=== PATIENT | female | born 1965 | race Caucasian/White ===

== ENCOUNTER → 2020-08-17 13:43 | Outpatient (CLI) | payer BC, SELFPAY ==
--- NOTE | 2020-08-17 | DI.RAD.S_ITS ---
PROCEDURE: XR KNEE RT 3V INDICATIONS: Unilateral primary osteoarthritis, right knee TECHNIQUE: 3 views of the knee were acquired. COMPARISON: None. FINDINGS: Bones: No fractures or dislocations. No suspicious bony lesions. Severe narrowing of the lateral femoral tibial joint and tricompartmental periarticular osteophyte formation. Soft tissues: No joint effusion. No suspicious soft tissue calcifications. IMPRESSION: Tricompartmental knee joint degeneration, severe involving the lateral femoral tibial joint. Dictated by: Westley ROBERTS Interpreted: Alexander Grimes MD on 08/17/2020 at 15:59 Transcribed by: ALO on 08/17/2020 at 15:59 Approved by: Alexander Grimes M.D. on 08/17/2020 at 16:56
--- NOTE | 2020-08-17 | DI.RAD.S_ITS ---
PROCEDURE: XR LUMBAR SPINE 2-3V INDICATIONS: Unilateral primary osteoarthritis, right knee TECHNIQUE: 3 views of the lumbar spine were acquired. COMPARISON: None. FINDINGS: Bones: 5 [id number] vertebrae are present. Mild levoscoliosis. Endplate osteophytes indicating mild early multilevel mid and lower cervical spine disc degeneration. Mild L5-S1 facet joint arthropathy.. No vertebral body compression fractures. No suspicious bony lesions. Soft tissues: Overlying bowel gas pattern is normal. No suspicious soft tissue calcifications. IMPRESSION: Mild multilevel spondylosis. Dictated by: Westley Mishra Joe Interpreted: Alexander Grimes MD on 08/17/2020 at 15:58 Transcribed by: ALO on 08/17/2020 at 15:59 Approved by: Alexander Grimes M.D. on 08/17/2020 at 16:56
== END ==
PROVIDERS: PCP Family Medicine; Referring Provider Family Medicine; Visit Provider Family Medicine
DX: M51.26 Other intervertebral disc displacement, lumbar region (principal); M17.11 Unilateral primary osteoarthritis, right knee
CPT/HCPCS: 72100; 73562

== ENCOUNTER → 2022-01-11 13:47 | Outpatient (CLI) | payer BC, SELFPAY ==
--- NOTE | 2022-01-11 13:49 | DI.RAD.S_ITS ---
PROCEDURE: XR LUMBAR SPINE 2-3V INDICATIONS: SPINE PAIN TECHNIQUE: 3 views of the lumbar spine were acquired. COMPARISON: [facility], CR, XR LUMBAR SPINE 2-3V, 08/17/2020, 14:10. FINDINGS: Bones: 5 [id number] vertebrae are present. There is mild levoscoliosis of lumbar spine centered at L2-3 level. No vertebral body compression fractures. Mild degenerative endplate changes are seen at L2-3, L3-4 and L4-5 levels. No suspicious bony lesions. Soft tissues: Overlying bowel gas pattern is normal. No suspicious soft tissue calcifications. IMPRESSION: Mild scoliosis and mild degenerative disc disease in lumbar spine as above. No fracture or dislocation. No gross paraspinous soft tissue abnormalities. Dictated by: Tomás Conley M.D. on 01/11/2022 at 15:45 Approved by: Tomás Conley M.D. on 01/11/2022 at 15:47
== END ==
PROVIDERS: PCP Family Medicine; Referring Provider Family Medicine; Visit Provider Family Medicine
DX: M51.16 Intervertebral disc disorders with radiculopathy, lumbar region (principal); M41.9 Scoliosis, unspecified
CPT/HCPCS: 72100

== ENCOUNTER → 2022-04-23 16:20 | Outpatient (CLI) | payer BC, SELFPAY ==
--- NOTE | 2022-04-23 | DI.MG.S_ITS ---
BILATERAL DIGITAL SCREENING MAMMOGRAM 3D/2D WITH CAD: 04/23/2022 CLINICAL: Routine screening. Comparison is made to exam dated: 03/08/2016 mammogram - [facility]. There are scattered areas of fibroglandular density in both breasts (category b / 25%-50% glandular tissue). Current study was also evaluated with a Computer Aided Detection (CAD) system. No significant masses, calcifications, or other findings are seen in either breast. There has been no significant interval change. IMPRESSION: NEGATIVE There is no mammographic evidence of malignancy. A 1 year screening mammogram is recommended. Based on the Tyrer Cuzick model (a risk assessment model) the patient's lifetime risk is 7.4% and her 10 year risk is 2.5%. According to the ACR, ACS, and NCCN guidelines, an annual breast MRI exam along with mammogram is recommended if the patient's lifetime risk is 20% or greater. This exam was interpreted at Station ID: [id number]. NOTE: For mammograms, a report in lay terms will be sent to the patient. Approximately 15% of breast malignancies will not be visualized mammographically. In the management of a palpable breast mass, a negative mammogram must not discourage biopsy of a clinically suspicious lesion. Electronically Signed By: Volodymyr cox/ester:04/24/2022 12:52:26 letter sent: Normal Exam ACR BI-RADS Category 1: Negative [id number]
== END ==
PROVIDERS: PCP Family Medicine; Referring Provider Family Medicine; Visit Provider Family Medicine
DX: Z12.31 Encounter for screening mammogram for malignant neoplasm of breast (principal)
CPT/HCPCS: 77063; 77067

== ENCOUNTER → 2022-06-04 12:36 | Outpatient (CLI) | payer BC, SELFPAY ==
[2022-06-04 13:58] LABS: Add Manual Diff / Slide Review NO; Basophils Absolute Auto 100 /uL (0-100); Basophils Percent Auto 1.5 % (0-2); Eosinophils Absolute Auto 200 /uL (0-450); Eosinophils Percent Auto 2.1 % (2-4); Hematocrit 42.3 % (36-46); Hemoglobin 14.3 g/dL (12.0-16.0); Lymphocytes Absolute Auto 2200 /uL (1100-4500); Lymphocytes Percent Auto 28.6 % (25-40); Mean Corpuscular HGB Conc 33.7 % (30-36); Monocytes Absolute Auto 400 /uL (0-900); Monocytes Percent Auto 5.4 % (3-14); Neutrophils Absolute Auto 4900 /uL (1500-7000); Neutrophils Percent Auto 62.4 % (50-75); Platelet Count 270 X10^3/uL (150-400); Red Blood Cell Count 4.92 X10^6/uL (4.0-5.2); Red Cell Distribution Width 13.3 % (11.6-14.8); White Blood Cell Count 7.8 X10^3/uL (4.5-11.0)
[2022-06-04 14:08] LABS: Appearance Urine UA CLEAR; Bilirubin Urine UA NEGATIVE (NEGATIVE); Color Urine UA YELLOW; Glucose Urine UA NEGATIVE (Negative); Ketones Urine UA NEGATIVE (NEGATIVE); Leukocyte Esterase Urine UA 1+ (NEGATIVE); Nitrite Urine UA NEGATIVE (Negative); Occult Blood Urine UA NEGATIVE (Negative); Protein Urine UA NEGATIVE (Negative); Specific Gravity Urine UA >=1.030 (1.000-1.035); Urobilinogen Urine UA 0.2 E.U./dL (0.2)
[2022-06-04 14:12] LABS: BUN Creatinine Ratio 22.2 (6-22); Blood Urea Nitrogen 12 mg/dL (7-17); Calcium 9.1 mg/dL (8.4-10.2); Carbon Dioxide 27 mmol/L (22-32); Chloride 104 mmol/L (98-107); Estimated Glomerular Filt Rate > 60 mL/min (>60); Glucose 84 mg/dL (70-100); HEMOLYSIS < 15 (0-50); Potassium 4.3 mmol/L (3.4-5.1); Sodium 140 mmol/L (137-145); pH Urine UA 5.5 (4.5-8.0)
[2022-06-04 14:14] LABS: Bacteria Urine Occasional (0-1); Culture Indicated Urine Specimen Cultured; RBC Urine 0-1/HPF (0-5/HPF); Renal Epithelial Cells Urine 0-1/HPF (0-1/HPF); Squamous Epithelial Cell Urine 1-5 /HPF (0-5/HPF); WBC Urine 5-10/HPF (0-5/HPF)
[2022-06-04 14:15] LABS: Hemoglobin A1C% w Est Avg Glu 5.1 % (4.0-6.0)
== END ==
PROVIDERS: PCP Family Medicine; Referring Provider Orthopaedic Surgery; Visit Provider Orthopaedic Surgery
DX: Z01.818 Encounter for other preprocedural examination (principal); Z01.812 Encounter for preprocedural laboratory examination; R73.9 Hyperglycemia, unspecified; N39.0 Urinary tract infection, site not specified
CPT/HCPCS: 36415; 80048; 81001; 83036; 85025; 87086; 93005; 93010

== ENCOUNTER → 2022-09-22 11:43 | Outpatient (CLI) | payer BC, SELFPAY ==
[2022-09-22 12:19] LABS: Add Manual Diff / Slide Review NO; Basophils Absolute Auto 100 /uL (0-100); Basophils Percent Auto 1.3 % (0-2); Eosinophils Absolute Auto 100 /uL (0-450); Eosinophils Percent Auto 2.1 % (2-4); Hematocrit 41.4 % (36-46); Hemoglobin 14.1 g/dL (12.0-16.0); Lymphocytes Absolute Auto 1600 /uL (1100-4500); Mean Corpuscular HGB Conc 34.2 % (30-36); Mean Corpuscular Hemoglobin 29.1 PG (26-34); Mean Corpuscular Volume 85.1 fL (80-100); Monocytes Absolute Auto 400 /uL (0-900); Monocytes Percent Auto 6.4 % (3-14); Neutrophils Absolute Auto 3800 /uL (1500-7000); Neutrophils Percent Auto 63.2 % (50-75); Platelet Count 224 X10^3/uL (150-400); Red Blood Cell Count 4.86 X10^6/uL (4.0-5.2)
[2022-09-22 12:37] LABS: Alanine Aminotransferase 19 IU/L (<35); Albumin 4.4 g/dL (3.5-5.0); Albumin Globulin Ratio 1.6 (1.0-2.8); Alkaline Phosphatase 91 U/L (38-126); Aspartate Aminotransferase 25 IU/L (14-36); BUN Creatinine Ratio 28.6 (6-22); Bilirubin Total 0.7 mg/dL (0.2-1.3); Bilirubin Unconjugated 0.5 mg/dL (0.0-1.1); Blood Urea Nitrogen 18 mg/dL (7-17); Estimated Glomerular Filt Rate > 60 mL/min (>60); Globulin 2.7 g/dL (1.7-4.1); HEMOLYSIS < 15 (0-50); Total Protein 7.1 g/dL (6.3-8.2)
== END ==
PROVIDERS: PCP Family Medicine; Referring Provider Orthopaedic Surgery; Visit Provider Orthopaedic Surgery
DX: Z01.812 Encounter for preprocedural laboratory examination (principal); B35.1 Tinea unguium
CPT/HCPCS: 36415; 80076; 82565; 84520; 85025; 93005; 93010

== ENCOUNTER → 2022-11-15 15:57 | Outpatient (CLI) | payer BC, SELFPAY ==
--- NOTE | 2022-11-15 15:59 | DI.US.S_ITS ---
PROCEDURE: US PERIPH VENOUS LOW EXTREM LT INDICATIONS: left leg pain and swelling TECHNIQUE: Real-time imaging, as well as color and pulse Doppler interrogation, were performed of the lower extremity deep veins from the inguinal ligament to the popliteal fossa, with documentation of the visualized calf veins. COMPARISON: None. FINDINGS: The common femoral, femoral, popliteal, and the visualized calf veins are normally compressible, and free of intraluminal thrombus. Color and pulse Doppler demonstrate normal phasic intraluminal flow. There is normal augmentation response to distal compression maneuver. IMPRESSION: No findings of lower extremity deep venous thrombosis. Dictated by: Ryley Cortez M.D. on 11/15/2022 at 17:49 Approved by: Ryley Cortez M.D. on 11/15/2022 at 17:49
== END ==
LOC: US 15:58
PROVIDERS: PCP Family Medicine; Referring Provider Family Medicine; Visit Provider Family Medicine
DX: I82.422 Acute embolism and thrombosis of left iliac vein (principal)
CPT/HCPCS: 93971

== ENCOUNTER 2022-11-23 16:20 | Emergency (ER) | payer BC, SELFPAY ==
[2022-11-23 16:47] VITALS: BP 134/79; PULSE 89; RESP 16; TEMP 36.1; O2SAT 97; BMI 37.3
--- NOTE | 2022-11-23 17:01 | DI.RAD.S_ITS ---
PROCEDURE: XR CHEST 1V INDICATIONS: chest pain TECHNIQUE: One view of the chest was acquired. COMPARISON: None. FINDINGS: Surgical changes and devices: None. Lungs and pleura: Lungs are clear. No pleural effusions or pneumothorax. Mediastinum: Mediastinal contours appear normal. Heart size is normal. Bones and chest wall: No suspicious bony lesions. Overlying soft tissues appear unremarkable. IMPRESSION: Portable chest within normal limits for age. Dictated by: Huan Palmer M.D. on 11/23/2022 at 18:28 Approved by: Huan Palmer M.D. on 11/23/2022 at 18:29
[2022-11-23 17:22] LABS: COVID19 -Nasal RAPID Negative (Negative)
[2022-11-23 18:15] LABS: Add Manual Diff / Slide Review NO; Basophils Absolute Auto 100 /uL (0-100); Basophils Percent Auto 1.2 % (0-2); Eosinophils Absolute Auto 400 /uL (0-450); Eosinophils Percent Auto 7.3 % (2-4); Hematocrit 34.5 % (36-46); Hemoglobin 11.7 g/dL (12.0-16.0); Lymphocytes Absolute Auto 1200 /uL (1100-4500); Lymphocytes Percent Auto 20.7 % (25-40); Mean Corpuscular HGB Conc 33.9 % (30-36); Mean Corpuscular Hemoglobin 28.7 PG (26-34); Mean Corpuscular Volume 84.7 fL (80-100); Monocytes Absolute Auto 500 /uL (0-900); Monocytes Percent Auto 7.8 % (3-14); Neutrophils Absolute Auto 3600 /uL (1500-7000); Platelet Count 233 X10^3/uL (150-400); Red Blood Cell Count 4.08 X10^6/uL (4.0-5.2); Red Cell Distribution Width 13.8 % (11.6-14.8); White Blood Cell Count 5.8 X10^3/uL (4.5-11.0)
[2022-11-23 18:18] LABS: INR 1.1 (0.9-1.3); Prothrombin Time 12.4 SECONDS (10.1-12.7)
[2022-11-23 18:20] LABS: PTT Partial Thromboplastin Tim 30 SECONDS (26-36)
[2022-11-23 18:25] LABS: Alanine Aminotransferase 20 IU/L (<35); Albumin 4.4 g/dL (3.5-5.0); Albumin Globulin Ratio 1.7 (1.0-2.8); Alkaline Phosphatase 70 U/L (38-126); Aspartate Aminotransferase 28 IU/L (14-36); BUN Creatinine Ratio 21.5 (6-22); Bilirubin Total 0.5 mg/dL (0.2-1.3); Blood Urea Nitrogen 14 mg/dL (7-17); Calcium 9.1 mg/dL (8.4-10.2); Carbon Dioxide 28 mmol/L (22-32); Chloride 103 mmol/L (98-107); Creatine Kinase 110 U/L (30-135); Estimated Glomerular Filt Rate > 60 mL/min (>60); Globulin 2.6 g/dL (1.7-4.1); Glucose 99 mg/dL (70-100); HEMOLYSIS < 15 (0-50); Lipase 36 U/L (23-300); Magnesium 1.8 mg/dL (1.6-2.3); Potassium 3.9 mmol/L (3.4-5.1); Sodium 139 mmol/L (137-145)
[2022-11-23 18:36] LABS: NT-proBNP (BNP-Adult 18+) 154 pg/mL (<125); Troponin I < 0.012 ng/mL (0.01-0.034)
--- NOTE | 2022-11-23 20:32 | ED_ITS ---
HPI - Extremity Problem General Chief complaint: Extremity Problem,Nontraumatic Stated complaint: Feet swelling Time Seen by Provider: 11/23/22 20:18 Source: patient Mode of arrival: Ambulatory History of Present Illness HPI Narrative: Patient is a 57-year-old female. She was approximately 1 month status post left total knee arthroplasty. She is had swelling in her left lower extremity since that time but she feels like it is potentially been worsening. She has had a ultrasound ordered as an outpatient which did not show any signs of a blood clot. She has been doing physical therapy. She has a follow-up with orthopedic surgeon next week. She denies any fevers. No history of heart failure. Related Data Allergies Allergy/AdvReac Type Severity Reaction Status Date / Time Penicillins Allergy Severe Hives Verified 11/23/22 16:46 Review of Systems Constitutional Constitutional: Reports system reviewed and no additional complaints, except as documented Musculoskeletal Musculoskeletal: Reports system reviewed and no additional complaints, except as documented Integumentary/Breasts Skin/Breast: Reports system reviewed and no additional complaints, except as documented Neurologic Neurologic: Reports system reviewed and no additional complaints, except as documented Hematologic/Lymphatic On Anticoagulants: No Patient History Social History Smoking Status: Never smoker Smoking Status: Never smoker Substance Use Type: does not use Exam Initial Vital Signs Initial Vital Signs: Vital Signs Temperature 97.0 F L 11/23/22 16:47 Pulse Rate 89 11/23/22 16:47 Respiratory Rate 16 11/23/22 16:47 Blood Pressure 134/79 11/23/22 16:47 Pulse Oximetry 97 11/23/22 16:47 Oxygen Delivery Method Room Air 11/23/22 16:47 Const General: No ill appearing Resp Auscultation: clear to auscultation bilaterally Cardio Rate: regular rate Rhythm: regular rhythm Skin Other: Surgical incision left anterior knee appears well. There was no signs of infection or dehiscence. She does have redness to her left lower extremity distal to the surgical incision. It is not warm to the touch. Neuro General: patient alert, patient awake and moves all extremities Extrem Other: Swelling bilateral lower extremities with left being worse than right. Course Orders Ordered: ED Orders 11/23/22 17:01 XR chest 1V Stat 11/23/22 17:02 COVID19 -Nasal RAPID Stat 11/23/22 17:50 Complete Blood Count AUTO DIFF Stat Comprehensive Metabolic Panel Stat Lipase Stat Magnesium Stat NT-proBNP (BNP-Adult 18+) Stat PTT Partial Thromboplastin Carlos Stat Prothrombin Time INR Stat Troponin & CK Cardiac Panel Stat 11/23/22 18:02 EKG-12 Lead Stat Vital Signs Vital signs: Vital Signs - 8 hr 11/23/22 20:51 11/23/22 21:00 11/23/22 21:00 Pulse Rate 90 90 Respiratory Rate 26 H Blood Pressure 162/86 H Pulse Oximetry 98 98 Oxygen Delivery Method Room Air 11/23/22 21:30 11/23/22 21:30 11/23/22 21:37 Pulse Rate 83 83 Respiratory Rate 16 Blood Pressure 157/75 H 157/75 H Pulse Oximetry 98 98 Oxygen Delivery Method Room Air MDM - Extremity (Nontraumatic) Lab Data 11/23/22 17:50 11/23/22 17:50 Labs: Lab Results 11/23/22 11/23/22 11/23/22 Range/Units 17:02 17:50 17:50 WBC 5.8 (4.5-11.0) X10^3/uL RBC 4.08 (4.0-5.2) X10^6/uL Hgb 11.7 L (12.0-16.0) g/dL Hct 34.5 L (36-46) % MCV 84.7 (80-100) fL MCH 28.7 (26-34) PG MCHC 33.9 (30-36) % RDW 13.8 (11.6-14.8) % Plt Count 233 (150-400) X10^3/uL Neut % (Auto) 63.0 (50-75) % Lymph % (Auto) 20.7 L (25-40) % [place] % (Auto) 7.8 (3-14) % Eos % (Auto) 7.3 H (2-4) % Baso % (Auto) 1.2 (0-2) % Neut # (Auto) 3600 (5386-9626) /uL Lymph # (Auto) 1200 (9008-9069) /uL [place] # (Auto) 500 (0-900) /uL Eos # (Auto) 400 (0-450) /uL Baso # (Auto) 100 (0-100) /uL PT 12.4 (10.1-12.7) SECONDS INR 1.1 (0.9-1.3) APTT 30 (26-36) SECONDS Sodium (137-145) mmol/L Potassium (3.4-5.1) mmol/L Chloride (98-107) mmol/L Carbon Dioxide (22-32) mmol/L BUN (7-17) mg/dL Creatinine (0.52-1.04) mg/dL Estimated GFR (>60) mL/min BUN/Creatinine Ratio (6-22) Glucose (70-100) mg/dL Calcium (8.4-10.2) mg/dL Magnesium (1.6-2.3) mg/dL Total Bilirubin (0.2-1.3) mg/dL AST (14-36) IU/L ALT (<35) IU/L Alkaline Phosphatase (38-126) U/L Total Creatine Kinase (30-135) U/L Troponin I (0.01-0.034) ng/mL NT-Pro-B Natriuret Pep (<125) pg/mL Total Protein (6.3-8.2) g/dL Albumin (3.5-5.0) g/dL Globulin (1.7-4.1) g/dL Albumin/Globulin Ratio (1.0-2.8) Lipase (23-300) U/L SARS-CoV-2 (PCR) Negative (Negative) 11/23/22 Range/Units 17:50 WBC (4.5-11.0) X10^3/uL RBC (4.0-5.2) X10^6/uL Hgb (12.0-16.0) g/dL Hct (36-46) % MCV (80-100) fL MCH (26-34) PG MCHC (30-36) % RDW (11.6-14.8) % Plt Count (150-400) X10^3/uL Neut % (Auto) (50-75) % Lymph % (Auto) (25-40) % [place] % (Auto) (3-14) % Eos % (Auto) (2-4) % Baso % (Auto) (0-2) % Neut # (Auto) (3110-7092) /uL Lymph # (Auto) (8865-3596) /uL [place] # (Auto) (0-900) /uL Eos # (Auto) (0-450) /uL Baso # (Auto) (0-100) /uL PT (10.1-12.7) SECONDS INR (0.9-1.3) APTT (26-36) SECONDS Sodium 139 (137-145) mmol/L Potassium 3.9 (3.4-5.1) mmol/L Chloride 103 (98-107) mmol/L Carbon Dioxide 28 (22-32) mmol/L BUN 14 (7-17) mg/dL Creatinine 0.65 (0.52-1.04) mg/dL Estimated GFR > 60 (>60) mL/min BUN/Creatinine Ratio 21.5 (6-22) Glucose 99 (70-100) mg/dL Calcium 9.1 (8.4-10.2) mg/dL Magnesium 1.8 (1.6-2.3) mg/dL Total Bilirubin 0.5 (0.2-1.3) mg/dL AST 28 (14-36) IU/L ALT 20 (<35) IU/L Alkaline Phosphatase 70 (38-126) U/L Total Creatine Kinase 110 (30-135) U/L Troponin I < 0.012 (0.01-0.034) ng/mL NT-Pro-B Natriuret Pep 154 H (<125) pg/mL Total Protein 7.0 (6.3-8.2) g/dL Albumin 4.4 (3.5-5.0) g/dL Globulin 2.6 (1.7-4.1) g/dL Albumin/Globulin Ratio 1.7 (1.0-2.8) Lipase 36 (23-300) U/L SARS-CoV-2 (PCR) (Negative) Imaging Data Chest x-ray: Radiologist's Impression: PROCEDURE:? XR CHEST 1V ? INDICATIONS:? chest pain ? TECHNIQUE:? One view of the chest was acquired.? ? COMPARISON:? None. ? FINDINGS:? ? Surgical changes and devices:? None.? ? Lungs and pleura:? Lungs are clear.? No pleural effusions or pneumothorax.? ? Mediastinum:? Mediastinal contours appear normal.? Heart size is normal.? ? Bones and chest wall:? No suspicious bony lesions.? Overlying soft tissues appear unremarkable.? ? ? IMPRESSION:? Portable chest within normal limits for age. ECG Data Interpretation: Sinus rhythm Ventricular rate 82 Normal axis Normal QRS Normal QTC No ST T wave changes MDM Narrative Medical decision making narrative: Patient has had a DVT ultrasound which has been negative and I have low suspicion for that today. The surgical incision appears well. Low suspicion for heart failure. Her kidney function is unremarkable. Did consider cellulitis however she is afebrile, not tachycardic and has no leukocytosis. She has redness or lower extremity but it is not warm to the touch. There was no signs of any abscess. I do suspect that the swelling is related to the surgery that she is had. She has a follow-up with her orthopedic surgeon next week. She does have compression stockings at home but she states they are way too tight for her. We discussed potentially using an Gray bandage to try to help with it so that she can adjust the compression of this. We will send the patient home with instructions to continue to follow the postoperative instructions given to her by the orthopedic surgeon. She was given return precautions. She expressed understanding and agreement. Discharge Plan Departure Patient Disposition: Home Clinical Impression: Lower extremity edema Instructions: Edema Activity Restrictions/Additional Instructions: Recommend that you continue to follow all of the postoperative instructions given to by the orthopedic surgeon. Keep all of your scheduled medical appointments. Return to the emergency department for new or worsening symptoms. Referrals: Michael Neely MD [Primary Care Provider] - Stand Alone Forms: Patient Portal/API
[2022-11-23 20:51] VITALS: PULSE 90; RESP 26; O2SAT 98
[2022-11-23 21:00] VITALS: BP 162/86; PULSE 90; O2SAT 98
[2022-11-23 21:30] VITALS: BP 157/75; PULSE 83; O2SAT 98
[2022-11-23 21:37] VITALS: BP 157/75; PULSE 83; RESP 16; O2SAT 98
== END 2022-11-23 21:37 | disposition home or self-care (01) ==
PROVIDERS: Emergency Medicine; Emergency Provider Emergency Medicine; PCP Family Medicine
DX: R60.0 Localized edema (principal); R07.9 Chest pain, unspecified; Z20.822 Contact with and (suspected) exposure to COVID-19
CPT/HCPCS: 36415; 71045; 80053; 82550; 83690; 83735; 83880; 84484; 85025; 85610; 85730; 87635; 93005; 93010; 99284; C9803

== ENCOUNTER → 2024-01-17 12:44 | Outpatient (CLI) | payer BC, SELFPAY ==
--- NOTE | 2024-01-17 12:46 | DI.RAD.S_ITS ---
PROCEDURE: XR DEXA AXIAL SKELETON INDICATIONS: SCREENING FOR OSTEOPOROSIS COMPARISON: None. FINDINGS: Lumbar Spine: Bone mineral density 0.758 g/cm2, T score -2.6 Left Hip: Bone mineral density 0.822 g/cm2, T score -1.0 Left Femoral Neck: Bone mineral density 0.68 g/cm2, T score -1.5 Right Hip: Bone mineral density 0.798 g/cm2, T score -1.2 Right Femoral Neck: Bone mineral density 0.67 g/cm2, T score -1.6 Fracture Risk Calculation (when applicable): 10-year fracture risk of a major osteoporotic fracture 9.2 percent and of a hip fracture 0.8 percent. (T score greater or equal to -1.0 to: NORMAL) (T score from -1.1 to -2.4: OSTEOPENIA) (T score less than or equal to -2.5: OSTEOPOROSIS) IMPRESSION: 1. Osteoporosis of the lumbar spine. 2. Normal bone density of the left hip, although approaching osteopenia. 3. Osteopenia of the left femoral neck. 4. Osteopenia of the right hip and femoral neck. Follow-up guidelines as follows: Osteoporosis: Consider a repeat DEXA and Vertebral Fracture Assessment (VFA) exam in 2 years or sooner if medically necessary, to reassess this patient's status. Osteopenia: Consider a repeat DEXA in 2-3 years to reassess this patient's status, or if there is a new clinical indication. Normal: Consider a repeat DEXA in 5 years or sooner, or if there is a new clinical indication. All treatment decisions require clinical judgment and consideration of individual patient factors, including patient preferences, comorbidities, previous drug use, risk factors not captured in the FRAX model (e.g., frailty, falls, vitamin D deficiency, increased bone turnover, interval significant decline in bone density ) and possible under- or over-estimation of fracture risk by FRAX. In addition, the NOF Guide recommends that FDA-approved medical therapies be considered in postmenopausal women and men age >= 50 years with a: * Hip or vertebral (clinical or morphometric) fracture * T-score of <=-2.5 at the spine or hip * Ten-year fracture probability by FRAX of >= 3% for hip fracture or >=20% for major osteoporotic fracture. People with diagnosed cases of osteoporosis or at high risk for fracture should have regular bone mineral density tests. For patients eligible for Medicare, routine testing is allowed once every 2 years. The testing frequency can be increased to one year for patients who have rapidly progressing disease, those who are receiving or discontinuing medical therapy to restore bone mass, or have additional risk factors. Dictated by: Ed Jeronimo M.D. on 01/17/2024 at 15:59 Approved by: Ed Jeronimo M.D. on 01/17/2024 at 16:01
== END ==
PROVIDERS: PCP Family Medicine; Referring Provider Family Medicine; Visit Provider Family Medicine
DX: Z13.820 Encounter for screening for osteoporosis (principal); M81.0 Age-related osteoporosis without current pathological fracture
CPT/HCPCS: 77080

== ENCOUNTER 2025-02-13 18:50 | Emergency (ER) | payer BC, SELFPAY ==
[2025-02-13] VITALS (20 sets, daily range): BP systolic 118–196; BP diastolic 61–117; PULSE 81–97; RESP 17–28; TEMP 36.1; O2SAT 95–98; BMI 43.4
--- NOTE | 2025-02-13 19:25 | ED_ITS ---
HPI - Neuro Symptoms/Deficit General Chief Complaint: Neuro Symptoms/Deficit Stated Complaint: Groggy, slurring speech Time Seen by Provider: 02/13/25 19:25 Source: patient and family Mode of arrival: Wheelchair History of Present Illness HPI Narrative: Patient is a [age]-year-old female no pertinent past medical history is brought in by spouse for ?slurring speech and lethargy this has been ongoing persistent for the past week. Patient states that she feels like she is drunk but denies any alcohol use or abuse, patient states that she does take oxycodone for chronic pain of her knees but states that her control this. She also states that she recently completed a course of Diflucan according to the this is when her symptoms started. This dose was 4 days ago at time of my evaluation and is slurring her speech however no other focal deficits able to answer questions appropriately moves all 4 extremities spontaneously. According to the has been patient is unstable on her feet and almost fell today which is what prompted her to be brought in. To note patient was also given 30 day course of alprazolam according to the patient she has not taken any of these states that she has not taken any benzos in ?a very long time. On Anticoagulants: No Related Data Home Medications ?Medication ?Instructions ?Recorded ?Confirmed alprazolam 1 mg tablet 1 mg PO Q12H PRN anxiety 02/13/25 azithromycin 250 mg tablet 250 mg PO 02/13/25 fluconazole 150 mg tablet 150 mg PO 02/13/25 metronidazole 500 mg tablet 500 mg PO BID 02/13/25 oxycodone-acetaminophen 10 mg-325 1 tab PO Q4-6H PRN p ain 02/13/25 02/13/25 mg tablet Previous Rx's ?Medication ?Instructions ?Recorded cefuroxime axetil 500 mg tablet 500 mg PO BID 1 week # 14 tabs 02/13/25 Allergies Allergy/AdvReac Type Severity Reaction Status Date / Time Penicillins AdvReac Severe Hives Verified 02/13/25 18:58 Review of Systems Review of Systems Narrative: General: Denies fever, chills, weight loss HEENT: Denies headache, eye drainage, eye irritation, head trauma, sore throat, voice change Cardiovascular: Denies any chest pain, palpitations, tachycardia Respiratory: Denies any shortness of breath, cough, wheeze, stridor GI/: Denies any abdominal pain, nausea, vomiting, diarrhea, bright red blood per rectum, melanotic stools, urinary frequency, urinary retention, dysuria, hematuria MSK: Denies any joint pain, muscle pains, swelling Skin: Denies any rashes, lesions, discoloration Neuro: Positive slurred speech, Denies any headache, lightheadedness, dizziness, fainting, weakness Psych: Denies SI/HI Hematologic/Lymphatic On Anticoagulants: No Exam Narrative Exam Narrative: General: Cooperative, well-developed, not in acute distress HEENT: Normocephalic, atraumatic, patient's pupils pinpoint but reactive, normal sclera, eyelids normal Neck: Active full range of motion, atraumatic Chest: Normal to inspection, negative crepitus, no overlying erythema ecchymosis Respiratory: Normal respiratory effort, not in acute respiratory distress, clear to auscultation bilaterally negative cough, wheeze, tachypnea, rhonchi, rales Cardiology: Regular rate rhythm negative gallop, murmur, rubs GI/: No tenderness to palpation, soft, non rigid, normal to inspection, exam deferred MSK: Full active range of motion in all 4 extremities, atraumatic, no tenderness to palpation of any bony prominences Skin: No rashes or lesions noted Neuro: NIH of 0, however patient is intermittently slurring her speech, she is able to answer questions appropriately however Alert awake oriented x3, moves all 4 extremities spontaneously, cranial nerves intact, able to answer all questions appropriately follows commands appropriately Psych: Cooperative, negative suicidal or homicidal ideations Initial Vital Signs Initial Vital Signs: Vital Signs Pulse Oximetry 95 02/13/25 18:55 Course Orders Ordered: ED Orders 02/13/25 19:32 XR chest 1V Stat 02/13/25 19:33 CT head/brain wo con Stat EKG-12 Lead Stat 02/13/25 20:09 Acetaminophen Stat Complete Blood Count AUTO DIFF Stat Comprehensive Metabolic Panel Stat Ethanol (ETOH) Stat Lactate (Lactic Acid) Stat Lipase Stat MAG [Magnesium] Stat NT-proBNP (BNP-Adult 18+) Stat PTT Partial Thromboplastin Carlos Stat Prothrombin Time INR Stat Salicylate Stat Troponin & CK Cardiac Panel Stat 02/13/25 20:10 Covid-19 + FLU A/B + RSV - PCR Stat 02/13/25 21:02 Blood Culture Stat 02/13/25 22:34 Urinalysis and Microscopic Stat Urine Culture Stat Urine Drug Screen, Rapid Stat Discontinued Medications Sodium Chloride (Normal Saline 0.9%) 1,000 mls @ 1,000 mls/hr IV BOLUS ONE Stop: 02/13/25 20:30 Last Infusion: 02/13/25 21:24 Dose: Infused Documented By: Admin: 02/13/25 20:32 Dose: 1,000 mls/hr Documented By: WALTER Vital Signs Vital signs: Vital Signs - 8 hr 02/13/25 18:55 02/13/25 18:56 02/13/25 18:56 Temperature Pulse Rate 94 H Respiratory Rate Blood Pressure 160/99 H Pulse Oximetry 95 98 Oxygen Delivery Method 02/13/25 18:58 02/13/25 19:00 02/13/25 19:00 Temperature 97 F L Pulse Rate 97 H 92 H Respiratory Rate 17 23 Blood Pressure 160/99 H 153/86 H Pulse Oximetry 97 98 Oxygen Delivery Method Room Air 02/13/25 19:30 02/13/25 19:31 02/13/25 19:31 Temperature Pulse Rate 89 92 H Respiratory Rate 22 19 Blood Pressure 145/67 H Pulse Oximetry 98 97 Oxygen Delivery Method 02/13/25 19:45 02/13/25 19:45 02/13/25 20:00 Temperature Pulse Rate 83 81 Respiratory Rate 26 H 26 H Blood Pressure 160/67 H Pulse Oximetry 96 97 Oxygen Delivery Method 02/13/25 20:01 02/13/25 20:01 02/13/25 20:30 Temperature Pulse Rate 81 88 Respiratory Rate 28 H 23 Blood Pressure 196/117 H Pulse Oximetry 98 97 Oxygen Delivery Method 02/13/25 20:31 02/13/25 20:31 02/13/25 20:35 Temperature Pulse Rate 82 Respiratory Rate 24 Blood Pressure 169/101 H 145/81 H Pulse Oximetry 96 Oxygen Delivery Method 02/13/25 20:35 02/13/25 21:00 02/13/25 21:23 Temperature Pulse Rate 83 82 Respiratory Rate 27 H Blood Pressure 149/99 H Pulse Oximetry 97 98 Oxygen Delivery Method 02/13/25 21:23 02/13/25 21:30 02/13/25 21:47 Temperature Pulse Rate 87 88 Respiratory Rate 26 H 25 H Blood Pressure 118/84 Pulse Oximetry 97 98 Oxygen Delivery Method 02/13/25 21:47 02/13/25 22:00 02/13/25 22:30 Temperature Pulse Rate 97 H 89 93 H Respiratory Rate 24 22 28 H Blood Pressure Pulse Oximetry 97 96 96 Oxygen Delivery Method MDM - Neuro Symptoms/Deficit Lab Data 02/13/25 20:09 02/13/25 20:09 Labs: Lab Results 02/13/25 02/13/25 02/13/25 Range/Units 20:09 20:10 22:34 WBC 5.5 (4.5-11.0) X10^3/uL RBC 4.56 (4.0-5.2) X10^6/uL Hgb 13.3 (12.0-16.0) g/dL Hct 39.3 (36-46) % MCV 86.2 (80-100) fL MCH 29.1 (26-34) PG MCHC 33.8 (30-36) % RDW 14.0 (11.6-14.8) % Plt Count 169 (150-400) X10^3/uL Neut % (Auto) 65.2 (50-75) % Lymph % (Auto) 25.3 (25-40) % [place] % (Auto) 6.1 (3-14) % Eos % (Auto) 2.6 (2-4) % Baso % (Auto) 0.8 (0-2) % Neut # (Auto) 3600 (1684-1120) /uL Lymph # (Auto) 1400 (8267-3679) /uL [place] # (Auto) 300 (0-900) /uL Eos # (Auto) 100 (0-450) /uL Baso # (Auto) 0 (0-100) /uL PT 11.8 (9.4-12.5) SECONDS INR 1.0 (0.9-1.3) APTT 29 (25.1-36.5) SECONDS Sodium 142 (137-145) mmol/L Potassium 3.7 (3.4-5.1) mmol/L Chloride 107 (98-107) mmol/L Carbon Dioxide 27 (22-32) mmol/L BUN 14 (7-17) mg/dL Creatinine 0.59 (0.52-1.04) mg/dL Estimated GFR > 60 (>60) mL/min BUN/Creatinine Ratio 23.7 H (6-22) Glucose 99 (70-99) mg/dL Lactate 1.2 (0.7-2.1) mmol/L Calcium 8.8 (8.4-10.2) mg/dL Magnesium 1.5 L (1.6-2.3) mg/dL Total Bilirubin 0.4 (0.2-1.3) mg/dL AST 28 (14-36) IU/L ALT 19 (<35) IU/L Alkaline Phosphatase 81 (38-126) U/L Total Creatine Kinase 60 (30-135) U/L Troponin I < 0.012 (0.01-0.034) ng/mL NT-Pro-B Natriuret Pep 140 H (<125) pg/mL Total Protein 6.8 (6.3-8.2) g/dL Albumin 4.5 (3.5-5.0) g/dL Globulin 2.3 (1.7-4.1) g/dL Albumin/Globulin Ratio 2.0 (1.0-2.8) Lipase 34 (23-300) U/L Urine Color Yellow Urine Appearance Sl cloudy Urine pH 6.0 (4.5-8.0) Ur Specific [place] 1.020 (1.000-1.035) Urine Protein Negative (Negative) Urine Glucose (UA) Negative (Negative) g/dL Urine Ketones Negative (NEGATIVE) Urine Occult Blood 2+ H (Negative) Urine Nitrate Positive H (Negative) Urine Bilirubin Negative (NEGATIVE) Urine Urobilinogen 0.2 (0.2) E.U./dL Ur Leukocyte Esterase 1+ H (NEGATIVE) Urine RBC 0-1/hpf (0-5/HPF) Urine WBC 5-10/hpf H (0-5/HPF) Ur Squamous Epith Cells 0-1 /hpf (0-5/HPF) Urine Bacteria Many (>30) H (None) Ur Culture Indicated? Specimen cultured Vol Urine Centrifuged 10ml (spun) Salicylates < 1.0 (<20) mg/dL U Opiates 300ng/mL cut Negative (Negative) Ur Oxycodone Screen Positive H (Negative) Urine Methadone Screen Negative (Negative) Acetaminophen < 10 (10-30) ug/mL Ur Barbiturates Screen Negative (Negative) U Tricyclic Antidepress Positive H (Negative) Ur Phencyclidine Scrn Negative (Negative) Ur Amphetamines Screen Negative (Negative) U Methamphetamines Scrn Negative (Negative) Ur MDMA Scrn (Ecstasy) Negative (Negative) U Benzodiazepines Scrn Positive H (Negative) Urine Cocaine Screen Negative (Negative) U Marijuana (THC) Screen Negative (Negative) Urine Specific [place] (Normal) Ethyl Alcohol < 10 (<10) mg/dL Ur Creatinine (Normal) SARS-CoV-2 (PCR) Negative (Negative) Influenza A (RT-PCR) Flu a negative (NEGATIVE) Influenza B (RT-PCR) Flu b negative (NEGATIVE) RSV (PCR) Negative (Negative) 02/13/25 Range/Units 22:34 WBC (4.5-11.0) X10^3/uL RBC (4.0-5.2) X10^6/uL Hgb (12.0-16.0) g/dL Hct (36-46) % MCV (80-100) fL MCH (26-34) PG MCHC (30-36) % RDW (11.6-14.8) % Plt Count (150-400) X10^3/uL Neut % (Auto) (50-75) % Lymph % (Auto) (25-40) % [place] % (Auto) (3-14) % Eos % (Auto) (2-4) % Baso % (Auto) (0-2) % Neut # (Auto) (9426-8014) /uL Lymph # (Auto) (3668-0916) /uL [place] # (Auto) (0-900) /uL Eos # (Auto) (0-450) /uL Baso # (Auto) (0-100) /uL PT (9.4-12.5) SECONDS INR (0.9-1.3) APTT (25.1-36.5) SECONDS Sodium (137-145) mmol/L Potassium (3.4-5.1) mmol/L Chloride (98-107) mmol/L Carbon Dioxide (22-32) mmol/L BUN (7-17) mg/dL Creatinine (0.52-1.04) mg/dL Estimated GFR (>60) mL/min BUN/Creatinine Ratio (6-22) Glucose (70-99) mg/dL Lactate (0.7-2.1) mmol/L Calcium (8.4-10.2) mg/dL Magnesium (1.6-2.3) mg/dL Total Bilirubin (0.2-1.3) mg/dL AST (14-36) IU/L ALT (<35) IU/L Alkaline Phosphatase (38-126) U/L Total Creatine Kinase (30-135) U/L Troponin I (0.01-0.034) ng/mL NT-Pro-B Natriuret Pep (<125) pg/mL Total Protein (6.3-8.2) g/dL Albumin (3.5-5.0) g/dL Globulin (1.7-4.1) g/dL Albumin/Globulin Ratio (1.0-2.8) Lipase (23-300) U/L Urine Color Urine Appearance Urine pH Normal (4.5-8.0) Ur Specific [place] (1.000-1.035) Urine Protein (Negative) Urine Glucose (UA) (Negative) g/dL Urine Ketones (NEGATIVE) Urine Occult Blood (Negative) Urine Nitrate (Negative) Urine Bilirubin (NEGATIVE) Urine Urobilinogen (0.2) E.U./dL Ur Leukocyte Esterase (NEGATIVE) Urine RBC (0-5/HPF) Urine WBC (0-5/HPF) Ur Squamous Epith Cells (0-5/HPF) Urine Bacteria (None) Ur Culture Indicated? Vol Urine Centrifuged Salicylates (<20) mg/dL U Opiates 300ng/mL cut (Negative) Ur Oxycodone Screen (Negative) Urine Methadone Screen (Negative) Acetaminophen (10-30) ug/mL Ur Barbiturates Screen (Negative) U Tricyclic Antidepress (Negative) Ur Phencyclidine Scrn (Negative) Ur Amphetamines Screen (Negative) U Methamphetamines Scrn (Negative) Ur MDMA Scrn (Ecstasy) (Negative) U Benzodiazepines Scrn (Negative) Urine Cocaine Screen (Negative) U Marijuana (THC) Screen (Negative) Urine Specific [place] Normal (Normal) Ethyl Alcohol (<10) mg/dL Ur Creatinine Normal (Normal) SARS-CoV-2 (PCR) (Negative) Influenza A (RT-PCR) (NEGATIVE) Influenza B (RT-PCR) (NEGATIVE) RSV (PCR) (Negative) ECG Data Interpretation: EKG interpreted ED physician sinus 83 beats per minute QTC 458, normal axis, QRS AZ interval within normal limits, no STEMI MDM Narrative Medical decision making narrative: Patient is a 59-year-old female with a past medical history of chronic pain to her knees on Percocet, also with recent history and treatment of vascularly yeast infection completely caused her on Diflucan 4 days ago. According to the and brought patient in patient has been slurring her speech does appear more tired states this all started when she started the Diflucan, to note patient was also prescribed alprazolam at that time, and states that she has not taken any of this, she states that she has not taken any benzodiazepines in a ?long time patient does have intermittent slurred speech otherwise no focal deficits, patient is not a candidate for tPA given prolonged symptoms therefore stroke alert was not called. She denies any other symptoms at this time. Lab work unremarkable no leukocytosis Chem panel normal, creatinine normal, urinalysis was positive for UTI, she was also positive for oxy, TCA and benzo, CT scan of the head did not show any acute intracranial abnormality, chest x-ray without any acute cardiopulmonary abnormality. I believe her symptoms are secondary to a combination of her chronic medications such as oxycodone benzodiazepine which were increase circulating in her blood when she took Diflucan, in addition symptoms persistent with the UTI. She was instructed to decrease the amount of her oxy, benzodiazepine, and instructed to follow up with her primary care doctor in outpatient setting. Patient and has been at bedside verbalized understanding agrees to being discharged home with outpatient follow up Discharge Plan Departure Patient Disposition: Home Clinical Impression: UTI (urinary tract infection) Instructions: DI for Urinary Tract Infection (UTI) Activity Restrictions/Additional Instructions: I would recommend decreasing the amount of your oxycodone and your alprazolam for the next few days and to take the antibiotic to completion and to follow up with your primary care doctor Please read the discharge instructions sheet carefully and bring all papers to all doctor follow-up visits, as it may contain information that your doctor may want to see. Disease processes change and evolve, if your symptoms worsen or if you develop any new symptoms that are concerning to you please return for evaluation. Your evaluation today does not show any evidence of any life- threatening/serious illnesses requiring admission to the hospital or surgery. Please follow-up with your doctor for re-evaluation in approximately 1 day. Seek immediate medical attention for any worrisome symptoms. *If you do not have a primary care provider please contact the [facility] Resource line at [phone]. They will ask some questions about your medical history and help get you set up with a doctor in the community. Prescriptions: New cefuroxime axetil 500 mg tablet 500 mg PO BID 7 Days Qty: 14 0RF No Action azithromycin 250 mg tablet 250 mg PO alprazolam 1 mg tablet 1 mg PO Q12H PRN (Reason: anxiety) fluconazole 150 mg tablet 150 mg PO metronidazole 500 mg tablet 500 mg PO BID oxycodone-acetaminophen 10-325 mg tablet 1 tab PO Q4-6H PRN (Reason: pain) Referrals: Michael Neely MD [Primary Care Provider, Family Practice] Stand Alone Forms: Patient Portal/API
--- NOTE | 2025-02-13 19:32 | DI.RAD.S_ITS ---
PROCEDURE: XR CHEST 1V INDICATIONS: AMS TECHNIQUE: One view of the chest was acquired. COMPARISON: [facility], CR, XR CHEST 1V, 11/23/2022, 17:55. FINDINGS: Surgical changes and devices: None. Lungs and pleura: Lungs are clear. No pleural effusions or pneumothorax. Mediastinum: Mediastinal contours appear normal. Heart size is enlarged. Bones and chest wall: No suspicious bony lesions. Overlying soft tissues appear unremarkable. IMPRESSION: No acute cardiopulmonary abnormality is seen. Heart size is enlarged. Dictated by: Volodymyr Whitfield M.D. on 02/13/2025 at 23:29 Approved by: Volodymyr Whitfield M.D. on 02/13/2025 at 23:29
--- NOTE | 2025-02-13 19:33 | DI.CT.S_ITS ---
PROCEDURE: CT HEAD/BRAIN WO CON INDICATIONS: AMS TECHNIQUE: Noncontrast 4.5 mm thick angled axial sections acquired from the foramen magnum to the vertex, with coronal and sagittal reformats. For radiation dose reduction, the following was used: automated exposure control, adjustment of mA and/or kV according to patient size. COMPARISON: None. FINDINGS: Image quality: Diagnostic. CSF spaces: Basal cisterns are patent. No extra-axial fluid collections. Ventricles are normal in size and shape. Brain: No midline shift. No intracranial mass effect or hemorrhage. Basal ganglia calcifications. No area of hypodensity in a large vascular distribution to suggest acute infarction. Periventricular hypodensity consistent with chronic microvascular ischemic change. Age-related parenchymal loss. Skull and face: Calvarium and visualized facial bones are intact, without suspicious lesions. Sinuses: Visualized sinuses and mastoids are clear. IMPRESSION: No acute intracranial pathology. Dictated by: Volodymyr Whitfield M.D. on 02/13/2025 at 23:18 Approved by: Volodymyr Whitfield M.D. on 02/13/2025 at 23:20
--- NOTE | 2025-02-13 20:24 | EKG_ITS ---
[address] [address] Test Date: 2025-02-13 Pat Name: Alejandra Donnelly Department: Room: Gender: Female [employer] Operator: ADAM : 1965 Requested By: Order Number: [id number] Reading MD: Measurements Intervals Novelty Rate: 83 P: 54 CA: 154 QRS: 5 QRSD: 94 T: 25 QT: 390 QTc: 458 Interpretive Statements Normal sinus rhythm Inferior infarct , age undetermined
[2025-02-13 20:31] LABS: Add Manual Diff / Slide Review NO; Hematocrit 39.3 % (36-46); Hemoglobin 13.3 g/dL (12.0-16.0); Lymphocytes Absolute Auto 1400 /uL (1100-4500); Mean Corpuscular HGB Conc 33.8 % (30-36); Mean Corpuscular Hemoglobin 29.1 PG (26-34); Mean Corpuscular Volume 86.2 fL (80-100); Platelet Count 169 X10^3/uL (150-400)
[2025-02-13] MEDS: SODIUM CHLORIDE 0.9% 1,000 ML 1000 ML IV (20:32)
[2025-02-13 20:39] LABS: INR 1.0 (0.9-1.3); Prothrombin Time 11.8 SECONDS (9.4-12.5)
[2025-02-13 20:42] LABS: Lactate (Lactic Acid) 1.2 mmol/L (0.7-2.1); PTT Partial Thromboplastin Tim 29 SECONDS (25.1-36.5)
[2025-02-13 20:44] LABS: Acetaminophen < 10 ug/mL (10-30); Alanine Aminotransferase 19 IU/L (<35); Albumin 4.5 g/dL (3.5-5.0); Albumin Globulin Ratio 2.0 (1.0-2.8); Alkaline Phosphatase 81 U/L (38-126); Blood Urea Nitrogen 14 mg/dL (7-17); Calcium 8.8 mg/dL (8.4-10.2); Carbon Dioxide 27 mmol/L (22-32); Chloride 107 mmol/L (98-107); Creatine Kinase 60 U/L (30-135); Estimated Glomerular Filt Rate > 60 mL/min (>60); Ethanol (ETOH) < 10 mg/dL (<10); Globulin 2.3 g/dL (1.7-4.1); Glucose 99 mg/dL (70-99); HEMOLYSIS < 15 (0-50); Lipase 34 U/L (23-300); Magnesium 1.5 mg/dL (1.6-2.3); Potassium 3.7 mmol/L (3.4-5.1); Salicylate < 1.0 mg/dL (<20); Sodium 142 mmol/L (137-145); Total Protein 6.8 g/dL (6.3-8.2)
[2025-02-13 20:55] LABS: NT-proBNP (BNP-Adult 18+) 140 pg/mL (<125); Troponin I < 0.012 ng/mL (0.01-0.034)
[2025-02-13 21:15] LABS: Influenza A - CEPHEID Flu A NEGATIVE (NEGATIVE); Influenza B - CEPHEID Flu B NEGATIVE (NEGATIVE)
[2025-02-13 21:49] LABS: COVID-19 CEPHEID 4-PLEX PCR Negative (Negative)
[2025-02-13 22:42] LABS: Appearance Urine UA SL CLOUDY; Bilirubin Urine UA NEGATIVE (NEGATIVE); Color Urine UA YELLOW; Glucose Urine UA NEGATIVE (Negative); Ketones Urine UA NEGATIVE (NEGATIVE); Leukocyte Esterase Urine UA 1+ (NEGATIVE); Nitrite Urine UA POSITIVE (Negative); Occult Blood Urine UA 2+ (Negative); Protein Urine UA NEGATIVE (Negative); Specific Gravity Urine UA 1.020 (1.000-1.035); Urobilinogen Urine UA 0.2 E.U./dL (0.2)
[2025-02-13 22:46] LABS: Ur Specific Gravity Normal (Normal); Urine Tetrahydrocannabinol Negative (Negative)
[2025-02-13 22:47] LABS: UR Morphine/Opiate cutoff 300 Negative (Negative); Urine MDMA Negative (Negative); Urine Methamphetamines Negative (Negative); Urine Tricyclic Antidepressant Positive (Negative)
[2025-02-13 22:56] LABS: pH Urine UA 6.0 (4.5-8.0)
[2025-02-13 22:57] LABS: Culture Indicated Urine Specimen Cultured
== END 2025-02-13 23:49 | disposition home or self-care (01) ==
PROVIDERS: Emergency Provider Student in an Organized Health Care Education/Training Program; PCP Family Medicine
DX: N39.0 Urinary tract infection, site not specified (principal); R47.81 Slurred speech; Z79.891 Long term (current) use of opiate analgesic
CPT/HCPCS: 36415; 70450; 71045; 80053; 80305; 80320; 80329; 81001; 82550; 83605; 83690; 83735; 83880; 84484; 85025; 85610; 85730; 87040; 87077; 87086; 87186; 87637; 93005; 99284; G0480; J7030